=== PATIENT | female | born 1935 | race Caucasian/White ===

== ENCOUNTER 2017-07-10 16:33 | Emergency (ER) | payer OTHER ==
[~2017-07-10] VITALS: Ht 160 cm; Wt 54.4 kg
[~2017-07-10 16:33] MED LIST: Amaryl PO; Ascorbic Acid,Ester- PO; Ativan PO; BYSTOLIC10 MG PO; CITALOPRAM HBR10 MG PO; Folvite PO; GLIMEPIRIDE1 MG; HIPREX PO; HYDROCHLOROTH12.5 M3 PO; KEPPRA250 MG PO; KLOR-CON 1010 ME1 PO; LIPITOR40 MG PO; LORAZEPAM2 MG PO; Lipitor PO; METHENAMINE MA500 MG PO; Micro-K,K-Tab,K-Dur, PO; Oscal 500 w/Vitamin PO; Pepcid PO; TYLENOL REGULA325 MG PO; Theragran PO; Ultram PO; Vicodin,Norco 5/325 PO; Zestril,Prinivil PO
[2017-07-10 17:55] LABS: BASOPHIL (%) 0.9 % (0-1); BASOPHIL COUNT 0.1 K/uL (0-0.1); EOSINOPHIL (%) 3.3 % (0-5); EOSINOPHIL COUNT 0.3 K/uL (0-0.3); HEMATOCRIT 37.3 % (36.0-46.0); HEMOGLOBIN 12.7 G/DL (11.9-15.5); IMMATURE GRANULOCYTE (%) 0.4 % (0.0-0.7); LYMPHOCYTE COUNT 1.7 K/uL (1.0-2.8); MCH 31.1 PG (29.0-34.0); MCV 91.4 FL (83-99); MONOCYTE (%) 10.5 % (3-12); NEUTROPHIL (%) 66.9 % (45-76); NEUTROPHIL COUNT 6.3 K/uL (1.8-6.4); PLATELET COUNT 276 K/uL (156-360); RBC DIS.WIDTH-CV 13.3 % (11.8-14.6); RBC DIS.WIDTH-SD 44.3 % (39-53); RED BLOOD COUNT 4.08 M/uL (3.80-5.20); WHITE BLOOD COUNT 9.3 K/uL (4.1-10.2)
[2017-07-10 18:05] LABS: ALBUMIN 3.4 g/dL (3.2-4.8); CHLORIDE 101 mEq/L (99-109); POTASSIUM 4.1 mEq/L (3.7-5.4); SODIUM 139 mEq/L (136-147)
[2017-07-10 18:06] LABS: MAGNESIUM 1.9 mg/dL (1.3-2.7)
[2017-07-10 18:07] LABS: GLUCOSE 122 mg/dL (70-99); TOTAL PROTEIN 7.5 g/dL (6.4-8.3)
[2017-07-10 18:09] LABS: TOTAL BILIRUBIN 0.4 mg/dL (0.0-1.0)
[2017-07-10 18:11] LABS: ALKALINE PHOSPHATASE 62 IU/L (3-129); CREATININE 3.7 mg/dL (0.6-1.3); GFR ESTIMATE (CALCULATED) 12 mL/min/
[2017-07-10 18:12] LABS: UREA NITROGEN (BUN) 59 mg/dL (9-23)
[2017-07-10 18:13] LABS: AST (GOT) 17 IU/L (2-34)
[2017-07-10 18:14] LABS: ALT (GPT) 15 IU/L (3-49)
[2017-07-10 18:15] LABS: TROP-I INTERPRETATION NEGATIVE; TROPONIN-I < 0.01 ng/mL (0.0-0.30)
[2017-07-10 18:31] LABS: APPEARANCE CLEAR ((CLEAR)); BILIRUBIN NEGATIVE; BLOOD NEGATIVE; COLOR YELLOW ((YELLOW)); GLUCOSE (STRIP) 50; KETONES NEGATIVE; LEUKOCYTES NEGATIVE; NITRITE NEGATIVE; PROTEIN (STRIP) >=500; SPECIFIC GRAVITY 1.011 (1.000-1.030); UROBILINOGEN 0.2 MG/DL (0.2-1.0)
[2017-07-10 18:40] LABS: BACTERIA RARE /HPF; EPITHELIAL CELLS RARE /HPF; HYALINE CASTS 0-5 /LPF; MUCUS NONE SEEN /LPF; RED BLOOD CELLS 0-5 /HPF (0-5); UCUL ADDED? NO; WHITE BLOOD CELLS 0-5 /HPF (0-5)
[2017-07-10 23:51] VITALS: BP 216/71
== END 2017-07-10 23:54 | disposition home or self-care (01) ==
LOC: EME 16:33
PROVIDERS: Emergency Medicine
DX: R42 Dizziness and giddiness (principal); I12.9 Hypertensive chronic kidney disease with stage 1 through stage 4 chronic kidney disease, or unspecified chronic kidney disease; E11.22 Type 2 diabetes mellitus with diabetic chronic kidney disease; N18.9 Chronic kidney disease, unspecified; Z79.84 Long term (current) use of oral hypoglycemic drugs; E78.5 Hyperlipidemia, unspecified; Z87.442 Personal history of urinary calculi
CPT/HCPCS: 80053; 81003; 83735; 84484; 85025; 93005; 99281; 99285; J7040